=== PATIENT | female | born 1935 | race Caucasian/White ===

== ENCOUNTER → 2016-11-23 11:26 | Outpatient (CLI) | payer MEDICARE | END | disposition home or self-care (01) | LOC: D.CT 11:26 | DX: R13.10 Dysphagia, unspecified (principal) ==

== ENCOUNTER → 2017-04-04 19:45 | Outpatient (CLI) | payer MEDICARE | END | disposition home or self-care (01) | LOC: D.LABREF 19:45 | DX: R05 Cough (principal) ==

== ENCOUNTER → 2017-04-06 12:46 | Outpatient (CLI) | payer MEDICARE | END | disposition home or self-care (01) | LOC: D.LABREF 12:46 | PROVIDERS: Family Medicine | DX: R19.7 Diarrhea, unspecified (principal) ==